=== PATIENT | male | born 1955 | race Caucasian/White ===

== ENCOUNTER → 2016-04-04 | Outpatient (CLI) | payer BC ==
[2016-04-04 07:43] LABS: EKG EKG PERFORMED
[2016-04-04 07:59] LABS: Anion Gap 11 mmol/L; Carbon Dioxide 25 mmol/L (22-30); Chloride 107 mmol/L (98-107); Potassium 4.5 mmol/L (3.5-5.1); Sodium 143 mmol/L (137-145)
[2016-04-04 08:03] LABS: Basophils % (A) 1 %; CH 30.9; CHCM 34.3; Eosinophils # (A) 0.1 k/uL (0-0.7); Eosinophils % (A) 1 %; HCT 47.3 % (39.0-53.0); HDW 2.91; HGB 15.7 gm/dL (13.0-17.5); Luc # (Auto) 0.27; Luc % (Auto) 3; Lymphocytes # (A) 2.2 k/uL (1.0-4.8); Lymphocytes % (A) 25 %; MCHC 33.1 g/dL (31.0-37.0); MCV 90.4 fL (80.0-100.0); Mean Platelet Volume 7.3; Monocytes # (A) 0.6 k/uL (0-1.0); Monocytes % (A) 7 %; Neutrophils # (A) 5.6 k/uL (1.3-7.7); Neutrophils % (A) 64 %; RBC 5.23 m/uL (4.30-5.90); RDW 13.2 % (11.5-15.5); WBC 8.8 k/uL (3.8-10.6); WBC (Perox) 8.79
== END | disposition home or self-care (01) ==
LOC: LABPAT 07:26
PROVIDERS: ATTEND Orthopaedic Surgery
DX: Z01.810 Encounter for preprocedural cardiovascular examination (principal); Z01.812 Encounter for preprocedural laboratory examination; M23.92 Unspecified internal derangement of left knee
CPT/HCPCS: 80051; 85025; 93005

== ENCOUNTER 2016-04-09 10:20 | Day surgery (SDC) | payer BC ==
[2016-04-07 11:30] VITALS: BMI 40.0
--- NOTE | 2016-04-08 16:40 | HP ---
DATE OF ADMISSION: 04/09/2016 Braydon Yañez is a 60-year-old patient seen with progressive left knee pain. After having treatment options discussed, he elected to proceed with left knee arthroscopy. Consent was obtained. Past medical history is noncontributory. PAST SURGICAL HISTORY: Appendectomy, cholecystectomy. DAILY MEDICATIONS: Ibuprofen as needed. ALLERGIES: PENICILLIN. SOCIAL HISTORY: Patient denies current tobacco use. PHYSICAL EVALUATION OF THE LEFT KNEE: Range of motion is 0 to 130 degrees. There is mild effusion. Tenderness, medial joint line. Positive medial Vandana's. Crepitus in medial and patellofemoral compartments with range of motion. Ligaments stable. Hip rotation without pain. Distal neurovascular exam is intact. Left knee radiographs revealed moderate medial and moderate patellofemoral compartment osteoarthritis. MRI of left knee revealed medial meniscal tear, osteoarthritis and joint effusion. IMPRESSION: 1. Internal ( ) left knee with medial meniscal tear. 2. Left knee osteoarthritis. PLAN: Left knee arthroscopy with partial meniscectomy and debridement.
[~2016-04-09 10:20] MED LIST: DEXAMETHASONE SOD PHOSPHATE 10 MG/ML 1 ML VIAL IV ONE; LACTATED RINGERS 1,000 ML IV SCH; LIDOCAINE 1% 20 ML VIAL (10MG/ML) FOR IV START INTRADERMA PRN; MIDAZOLAM 2 MG/2 ML VIAL IV PRN; ONDANSETRON 4 MG/2 ML VIAL IVP ONE; SCOPOLAMINE 1.5MG/72HR PATCH TRANSDERM ONE; ceFAZolin 2 GM in SODIUM CHLORIDE 0.9% 100 ML IVPB ONE
[2016-04-09] MEDS ORDERED: LIDOCAINE 1% 20 ML VIAL (10MG/ML) FOR IV START INTRADERMA ONE (11:23)
[2016-04-09] MEDS ORDERED: PROPOFOL 10 MG/ML 20 ML VIAL IV ONE (12:09)
[2016-04-09] MEDS ORDERED: fentaNYL (PF) 50 MCG/ML 2 ML AMP ONE (12:09)
[2016-04-09] MEDS ORDERED: LIDOCAINE 1% INJ 10MG/ML (20 ML MDV) ONE (12:09)
[2016-04-09] MEDS ORDERED: SUCCINYLCHOLINE CHLORIDE VIAL 200 MG/10 ML VIAL IV ONE (12:09)
[2016-04-09] MEDS ORDERED: BUPIVACAIN-EPI 0.25%-1:200,000 30 ML VIAL INTRAARTIC ONE (12:09)
[2016-04-09] MEDS: HYDROmorphone 1 MG/ML 1 ML SYRINGE IVP PRN ×4 (13:08→13:35)
--- NOTE | 2016-04-09 13:08 | P.OP ---
Date of Procedure: 04/09/16 Preoperative Diagnosis: Internal derangement left knee Postoperative Diagnosis: 1. Tear medial and lateral meniscus left knee 2. Grade 4 chondromalacia medial femoral condyle left knee 3. Grade 3 chondromalacia lateral femoral condyle left knee 4. Grade 3 chondromalacia patella left knee 5. Reactive synovitis medial and suprapatellar compartments left knee Procedure(s) Performed: 1. Arthroscopic partial medial and lateral meniscectomy left knee 2. Arthroscopic chondroplasty medial femoral condyle left knee 3. Arthroscopic chondroplasty lateral femoral condyle left knee 4. Arthroscopic chondroplasty patella left knee 5. Arthroscopic partial synovectomy medial and suprapatellar compartments left knee Anesthesia: GETA, local Surgeon: Pacheco Garcia Estimated Blood Loss (ml): 10 Pathology: none sent Condition: stable Disposition: PACU Indications for Procedure: 60-year-old patient seen with left knee pain. After having treatment options discussed, he elected to proceed with left knee arthroscopy. Operative Findings: See description of procedure Description of Procedure: Patient was taken to the operative suite. Patient underwent a general anesthetic by the department of anesthesia. Patient was given preoperative antibiotics. The left lower extremity was placed in a well-padded arthroscopic leg fernandez. The left leg was prepped and draped in the normal sterile orthopedic fashion. A lateral parapatellar and suprapatellar incision was made. Trochars were inserted. Arthroscopy was initiated. Suprapatellar pouch revealed thick reactive synovitis. The patellofemoral joint appeared to articulate congruently. There was grade 3 chondromalacia patella with osteochondral tears present. The scope was guided into the medial gutter. No loose bodies or plica were identified. The scope was then guided into the medial compartment. A medial parapatellar incision was made. Trocar inserted followed by probe. There was a complex tear involving the posterior horn and midbody and anterior horn medial meniscus. There were grade 4, changes of both the femoral condyle and tibial plateau with bony exposure. There was some reactive synovitis anteriorly. A partial medial meniscectomy was performed down to stable tissue. A chondroplasty medial femoral condyle is performed on a stable tissue. The residual meniscus was probed and found to be stable. We again had [id number] contact along the medial edge of the medial compartment. Scope and probe were then guided into the intercondylar notch. Cruciates were identified, probed and found to be stable. The scope and probe were then guided into lateral compartment. There was a radial tear in the lateral meniscus. There were grade 3 chondromalacia lateral femoral condyle with osteochondral tears present. No loose bodies or reactive synovitis. A partial lateral meniscectomy performed on a stable tissue. I performed a chondroplasty lateral femoral condyle down to stable tissue. The residual meniscus was probed and found to be stable as was the residual osteochondral surface lateral femoral condyle. The scope was in guided back into the suprapatellar compartment. A motorized shaver was introduced into the suprapatellar compartment. I performed a chondroplasty the patella. I performed a partial synovectomy. I debrided out some piecemeal fragments of meniscus I encountered. The shaver was removed. I took one more look on the entire knee, no residual debris. Instruments were now removed from the joint. The joint was infiltrated with .25% Marcaine. Steri-Strips were applied to the portal sites. Sterile dressings were applied. The patient was placed into a YONATAN hose. No tourniquet was utilized. The patient was awakened, transferred to a bed and taken to recovery stable satisfactory condition.
[2016-04-09 13:17] VITALS: TEMP 97.4
[2016-04-09] MEDS ORDERED: KETOROLAC 30 MG/ML 1 ML VIAL IVP ONE (13:25)
[2016-04-09 16:04] VITALS: RESP 18
[2016-04-09 16:11] VITALS: BP 130/65; PULSE 64
== END 2016-04-09 16:00 | disposition home or self-care (01) ==
LOC: OR 10:20
PROVIDERS: ATTEND Orthopaedic Surgery
DX: S83.282A Other tear of lateral meniscus, current injury, left knee, initial encounter (principal); S83.242A Other tear of medial meniscus, current injury, left knee, initial encounter; M17.12 Unilateral primary osteoarthritis, left knee; M22.42 Chondromalacia patellae, left knee; M65.9 Synovitis and tenosynovitis, unspecified; E66.9 Obesity, unspecified; Z68.41 Body mass index [BMI] 40.0-44.9, adult; Z88.0 Allergy status to penicillin; X58.XXXA Exposure to other specified factors, initial encounter
CPT/HCPCS: 29880; J2250; J0330; J1100; J0690; J2405; J2001; J3010; J1885; J1170; J2704

== ENCOUNTER 2021-10-08 10:27 | Day surgery (SDC) | payer BC ==
[2021-10-07 10:52] VITALS: BMI 40.3
[2021-10-08] MEDS ORDERED: LACTATED RINGERS 1,000 ML IV ONE ×2 (11:14→13:47)
[2021-10-08] MEDS ORDERED: ONDANSETRON 4 MG/2 ML VIAL ONE (11:31)
[2021-10-08] MEDS: fentaNYL (PF) 50 MCG/ML 2 ML AMP IVP ONE ×3 (11:38→14:59)
[2021-10-08] MEDS ORDERED: MIDAZOLAM 2 MG/2 ML VIAL IVP ONE (11:38)
[2021-10-08] MEDS ORDERED: DEXAMETHASONE SOD PHOSPHATE 4 MG/ML 1 ML VIAL IVP ONE (11:56)
[2021-10-08] MEDS ORDERED: ONDANSETRON 4 MG/2 ML VIAL IVP ONE (11:56)
--- NOTE | 2021-10-08 12:26 | P.ANPRN ---
Procedure Note - Anesthesia - Nerve Block Performed Left Adductor Canal Single Time Out Performed: Yes Date of Procedure: 10/08/21 Procedure Start Time: 11:37 Procedure Stop Time: 11:42 Location of Patient: PreOp Indication: Acute Post-Operative Pain, Requested by Surgeon Specifically requested for management of pain by DrMadisyn: Jovon Squires Sedation Type: Sedate with meaningful contact maintained Preparation: Sterile Prep Position: Supine Needle Types: Pajunk Needle Gauge: 21 Ultrasound used to visualize needle placement: Yes Ultrasound used to observe medication spread: Yes Injectate: 0.5% Ropivacaine (see comment for volume) (15 ml + 10 ml NS + 4 mg Dexamethasone) Blood Aspirated: No Pain Paresthesia on Injection Noted: No Resistance on Injection: Normal Image Stored and Saved: Yes Events: Uneventful and Well Tolerated
--- NOTE | 2021-10-08 12:28 | P.ANPRN ---
Procedure Note - Anesthesia - Nerve Block Performed Left Popliteal Single Time Out Performed: Yes Date of Procedure: 10/08/21 Procedure Start Time: 11:43 Procedure Stop Time: 11:48 Location of Patient: PreOp Indication: Requested by Surgeon Specifically requested for management of pain by DrMadisyn: Jovon Squires Sedation Type: Sedate with meaningful contact maintained Preparation: Sterile Prep Position: Right Lateral Needle Types: Pajunk Needle Gauge: 21 Ultrasound used to visualize needle placement: Yes Ultrasound used to observe medication spread: Yes Injectate: 0.5% Ropivacaine (see comment for volume) (15 ml + 10 ml NS + 4 mg Dexamethasone) Blood Aspirated: No Pain Paresthesia on Injection Noted: No Resistance on Injection: Normal Image Stored and Saved: Yes Events: Uneventful and Well Tolerated
[2021-10-08] MEDS ORDERED: PROPOFOL 10 MG/ML 20 ML VIAL IV ONE (12:51)
[2021-10-08] MEDS ORDERED: SUCCINYLCHOLINE CHLORIDE 200 MG/10 ML VIAL IV ONE (12:51)
[2021-10-08] MEDS ORDERED: DEXAMETHASONE SOD PHOSPHATE 4 MG/ML 1 ML VIAL ONE (12:51)
[2021-10-08] MEDS ORDERED: NEOSTIGMINE 1 MG/ML 10 ML VIAL ONE (12:51)
[2021-10-08] MEDS ORDERED: GLYCOPYRROLATE 0.2 MG/ML 2 ML VIAL ONE (12:51)
[2021-10-08] MEDS ORDERED: ROCURONIUM 10 MG/ML (5 ML VIAL) IV ONE (12:51)
[2021-10-08] MEDS ORDERED: MIDAZOLAM 2 MG/2 ML VIAL ONE (12:51)
[2021-10-08] MEDS ORDERED: fentaNYL (PF) 50 MCG/ML 2 ML AMP ONE (12:51)
[2021-10-08] MEDS ORDERED: LIDOCAINE 2% INJ 20 MG/ML (2 ML VIAL) ONE (12:51)
[2021-10-08] MEDS ORDERED: HYDROmorphone (PF) 1 MG/ML ONE (12:51)
[2021-10-08] MEDS ORDERED: ROPIVACAINE 5 MG/ML 30 ML VIAL ONE (12:51)
[2021-10-08] MEDS ORDERED: SODIUM CHLORIDE 0.9% (PF) 10 ML VIAL ONE (12:51)
[2021-10-08 14:45] VITALS: RESP 16; TEMP 98
--- NOTE | 2021-10-08 15:01 | P.OP ---
Date of Procedure: 10/08/21 Preoperative Diagnosis: 1. Left Achilles tendon rupture 2. Left calcaneal spur 3. Equinus left Postoperative Diagnosis: 1. Same 2. Same 3. Same Procedure(s) Performed: 1. Secondary repair of left Achilles tendon rupture 2. Excision of calcaneal spur left 3. Gastroc recession left Implants: Arthrex Achilles speed bridge Arthrex 8 x 12 mm interference screw Anesthesia: JESUS Surgeon: Jovon Squires Estimated Blood Loss (ml): 5 Pathology: none sent Condition: stable Disposition: PACU Description of Procedure: Prior to the patient being brought to the operating room, anesthesia administered a nerve block on the affected lower extremity. The patient was then taken to the operating room. Timeout was taken to confirm correct patient identifiers, correct site of surgery, and correct procedure. When all staff in the room were in agreement with the timeout, the patient was induced and placed under general anesthesia. The patient was then placed on the operating room table in the prone position with the ankles to the edge of the bed, with a ppropriate padding beneath bony prominences and in the thoracic area. Once anesthesia was satisfied with the position of the patient. A well-padded tourniquet was placed on the thigh of the affected extremity. The leg was then prepped and draped in the usual manner. The leg was exsanguinated, the knee slightly flexed, and the tourniquet inflated to 250 mmHg. Attention was directed over the posterior aspect of the leg, where the gastroc recession was performed. A linear midline incision was made distal to the gastroc muscle belly. The incision was deepened down to the subcutaneous layer careful to identify, avoid, and retract any neurovascular structures and cauterize any bleeding vessels. Blunt dissection was carried down to level the deep fascia. The fascia was incised and then bluntly dissected off the gastroc aponeurosis. A transverse incision was made through the aponeurosis from medial to lateral. Once completed the ankle was dorsiflexed and a visible gap. And the aponeurosis, indicating a full release. The wound is thoroughly irrigated. The deep fascia was closed with 3-0 Vicryl. The subcutaneous layer was closed with 3-0 Vicryl. And skin closure done with betsy. Then attention was directed over the Achilles insertion. A curvilinear incision was made starting in the medial side of the Achilles tendon then curving posteriorly over the insertion point. The incision was deepened down to the subcutaneous layer, careful to identify, avoid, and retract any neurovascular structures and cauterize any bleeding vessels the skin and subcutaneous layers were dissected in a full-thickness fashion off the Achilles tendon. Incisions are made on the anterior aspect of the Achilles tendon, on the medial and lateral aspects, and extended down to the insertion. Once that was completed blunt dissection was done through the deep tissues down to the Achilles tendon. There was a full-thickness rupture of the Achilles tendon with a normal fraying of the ends of the tendon and hematoma formation. The frayed ends of the tendon for the proximal stump were sharply debrided.The Achilles insertion was then sharply removed off the posterior aspect of the calcaneus. There was a large calcific density in the body of the Achilles tendon superior to the insertion point. This is carefully dissected and removed. Any abnormal tissue in the Achilles tendon insertion was also sharply debrided. Once that was completed attention was directed to the posterior calcaneus where there was a large calcaneal spur. An osteotome was used to remove all the abnormal bony growth in the posterior calcaneus. This also allowed for exposure the bone to help facilitate the reattachment of the Achilles tendon. The area was thoroughly irrigated with sterile saline. Once the process was completed, attention was directed to the flexor hallucis longus tendon transfer. The deep fascia was incised and bluntly dissected to the muscle belly of the flexor hallucis longus tendon. The tendon was identified and followed into the medial compartment. With the great toe plantarflexed the flexor hallucis longus tendon was transected and delivered into the surgical field. The deep fascia overlying the muscle belly was also released so could be placed into contact with the Achilles tendon repair. A whipstitch was placed in the distal end of the flexor hallucis longus tendon. Then a guidewire was placed just anterior to the insertion of the Achilles tendon, and advanced plantar and distal, avoiding the calcaneal tuberosity, until it exited the plantar aspect of the foot. Then an 8.5 mm reamer was laced over the wire and all hole reamed through the calcaneus from dorsal to plantar. The eyelet of the wire was left in the surgical field and the suture from the flexor hallucis longus tendon was passed through the eyelet and then the guidewire pulled to the plantar aspect of the foot along with the suture. Tension was placed on the suture to pull the flexor hallucis longus tendon into the bony tunnel. The ankle was held in slight equinus as tension was placed on the flexor hallucis longus tendon. Then an 8 x 12 mm interference screw was inserted into the drill hole and advanced into the calcaneus locking the tendon in place. Once completed the ankle was dorsiflexed and there was firm fixation of the tendon in the canal. An Arthrex PARS jig was then placed around the proximal stump of the Achilles tendon. A ring forceps was then used to grasp the proximal end of the Achilles tendon to apply distal tension. A straight needle was placed in the #1 slot in the jig to lock the tendon in place. When the clamp was removed that was holding the tendon, there was no retraction of the tendon. Straight needles with fiber tape suture were then passed through holes 2 and 5. And then another sutures plaster through the #1 needle was placed through the tendon. A total of 3 sutures were passed. All the sutures were then aligned and then the jig was slowly pulled distally bring the suture between the peritenon and tendon. Then tension was placed on both ends of the suture group to take the creep out of the suture within the tendon. And pulling on both sets of sutures created tension within the gastroc muscle belly indicating that there was good grasp of the tissue with the suture. Then attention was directed over the Achilles insertion. A curvilinear incision was made starting in the medial side of the Achilles tendon then curving posteriorly over the insertion point. The incision was deepened down to the subcutaneous layer, careful to identify, avoid, and retract any neurovascular structures and cauterize any bleeding vessels the skin and subcutaneous layers were dissected in a full-thickness fashion off the Achilles tendon. Incisions are made on the anterior aspect of the Achilles tendon, on the medial and lateral aspects, and extended down to the insertion. It was brought into contact at the calcaneus to madhav the insertion point. A transverse line was made and marking the insertion point. Then gomez were made for the drill holes for the anchoring system. The holes were done medial and lateral and approximate 1 cm from the madhav. A total 4 holes were made. All holes were then tapped. The anchors with the sutures attached, were placed into the proximal drill holes and advanced to proper depth area then the suture attached to these anchors was then passed through the proximal stump of the tendon again while holding tension with the ring forceps. A strand of suture from each side were brought together along with the suture from the PARS jig. While simultaneously holding tension to all the sutures both on the medial and lateral aspects. The 5 strands of suture on the lateral side were placed through the 4.75 mm swivel lock anchor. This was then aligned with the drill hole that was made distally and inserted and impacted and the interference screw was advanced locking the suture in place. While holding continuous tension on the heel side, the same process was performed with the other 4.75 mm swivel lock anchor. Once the anchor was inserted and advanced the suture was locked in place. Tension was maintained across repair site so that the Achilles tendon was in contact with the posterior aspect of the calcaneus. Dorsiflexion the ankle indicated full tension throughout the repair site and into the gastroc muscle belly. All sutures were then cut down to length. All wounds were thoroughly irrigated with antibiotic saline. 3-0 Vicryl was used to sew the flexor hallucis longus muscle belly and tendon to the anterior side of the Achilles tendon repair to strengthen the overall repair. Subcutaneous closure was done with 3-0 Vicryl and skin closure done with betsy. An Arthrex jumpstart dressings were placed over both incisions. A bulky dressing was applied to the left leg. The tourniquet was released and capillary refill return to all digits on the left foot. The patient was then placed in a well- padded, well molded plaster posterior mold/sugar tong splint. The ankle was held in slight equinus as the splint dried. Once dried, the patient was rolled onto the transfer table in the supine position. Then anesthesia was reversed and the patient was taken recovery with vital signs stable.
[2021-10-08] MEDS ORDERED: HYDROmorphone 1 MG/ML 1 ML SYRINGE IVP ONE (15:02)
[2021-10-08] MEDS ORDERED: HYDROcodone/APAP 7.5-325MG 1 EACH TAB ONE (15:43)
[2021-10-08] MEDS ORDERED: HYDROcodone/APAP 7.5-325MG 1 EACH TAB PO ONE (15:45)
[2021-10-08 16:49] VITALS: BP 130/82; PULSE 74
== END 2021-10-08 17:04 | disposition home or self-care (01) ==
LOC: OR 10:27
PROVIDERS: ATTEND Podiatrist
DX: S86.012A Strain of left Achilles tendon, initial encounter (principal); X50.1XXA Overexertion from prolonged static or awkward postures, initial encounter; M77.32 Calcaneal spur, left foot; M21.962 Unspecified acquired deformity of left lower leg; Z87.891 Personal history of nicotine dependence; Z79.1 Long term (current) use of non-steroidal anti-inflammatories (NSAID); E11.9 Type 2 diabetes mellitus without complications; Z88.1 Allergy status to other antibiotic agents; E29.1 Testicular hypofunction; E55.9 Vitamin D deficiency, unspecified; K76.0 Fatty (change of) liver, not elsewhere classified; M54.30 Sciatica, unspecified side; E66.01 Morbid (severe) obesity due to excess calories; Z68.41 Body mass index [BMI] 40.0-44.9, adult; Z97.3 Presence of spectacles and contact lenses; Z90.49 Acquired absence of other specified parts of digestive tract; Z98.890 Other specified postprocedural states; Z83.3 Family history of diabetes mellitus; Z88.0 Allergy status to penicillin; Z88.2 Allergy status to sulfonamides; Z86.69 Personal history of other diseases of the nervous system and sense organs
CPT/HCPCS: 27654; 28119; 27687; 64447; 64445; 76942; C1713 ×4; J2250; J0330; J1100; J2710; J0690; J2405; J3010; J1170; J2795; J2704; J2001

== ENCOUNTER → 2021-10-15 | Outpatient (CLI) | payer BC ==
--- NOTE | 2021-10-15 09:42 | US ---
EXAMINATION TYPE: US venous doppler duplex LE LT DATE OF EXAM: 10/15/2021 9:30 AM COMPARISON: NONE CLINICAL HISTORY: I80.9 PHLEBITIS AND THROMBOPHLEBITIS OF UNSPECIFIE. Left achilles surgery x 1 week ago. Calf pain. Swelling. Not on blood thinners. SIDE PERFORMED: Left TECHNIQUE: The lower extremity deep venous system is examined utilizing real time linear array sonog greer with graded compression, doppler sonography and color-flow sonography. VESSELS IMAGED: Common Femoral Vein Deep Femoral Vein Greater Saphenous Vein * Femoral Vein Popliteal Vein Small Saphenous Vein * Proximal Calf Veins (* superficial vessels) Left Leg: Negative for DVT IMPRESSION: No evidence for DVT at this time.
== END | disposition home or self-care (01) ==
LOC: RADUSWWP 09:10
PROVIDERS: ATTEND Podiatrist
DX: I80.9 Phlebitis and thrombophlebitis of unspecified site (principal)